=== PATIENT | male | born 1995 ===

== ENCOUNTER 2018-03-10 16:15 | Emergency (ER) | payer SELFPAY ==
[2018-03-10] MEDS ORDERED: Cephalexin CAP* 500 MG PO ONE (18:09)
--- NOTE | 2018-03-10 18:11 | ED ---
Skin Complaint - HPI Summary HPI Summary: 22 year male presents with rash on right arm for the past couple days. States that got bug bite a couple days ago. He states that the area of redness is spreading. He states it is not itchy. he has never had this before. No history of MRSA. No medical conditions. Denies any fevers or chills. No fatigue. Has tried some Benadryl with minimal relief. - History of Current Complaint Chief Complaint: EDRashSkinAbscess Time Seen by Provider: 03/10/18 18:08 Stated Complaint: RASH/SKIN ISSUE Pain Intensity: 0 - Allergy/Home Medications Allergies/Adverse Reactions: Allergies Allergy/AdvReac Type Severity Reaction Status Date / Time No Known Allergies Allergy Verified 03/10/18 16:55 PMH/Surg Hx/FS Hx/Imm Hx Endocrine/Hematology History: Denies: Hx Anticoagulant Therapy Cardiovascular History: Denies: Hx Hypertension Infectious Disease History: No Infectious Disease History: Denies: Traveled Outside the [place] in Last 30 Days - Family History Known Family History: Negative: Diabetes - Social History Alcohol Use: Occasionally Substance Use Type: Reports: None Smoking Status (MU): Never Smoked Tobacco Review of Systems Negative: Fever Negative: Chest Pain Negative: Shortness Of Breath Positive: Rash All Other Systems Reviewed And Are Negative: Yes Physical Exam Triage Information Reviewed: Yes Vital Signs On Initial Exam: Initial Vitals Temp Pulse Resp BP Pulse Ox 100.1 F 70 16 133/82 98 03/10/18 16:52 03/10/18 16:52 03/10/18 16:52 03/10/18 16:52 03/10/18 16:52 Vital Signs Reviewed: Yes Appearance: Positive: Well-Appearing Skin: Positive: Other - 8cm by 6cm area of erythema on right arm Head/Face: Positive: Normal Head/Face Inspection Eyes: Positive: Normal, Conjunctiva Clear ENT: Positive: Pharynx normal Respiratory/Lung Sounds: Positive: Clear to Auscultation, Breath Sounds Present Cardiovascular: Positive: Normal, RRR Musculoskeletal: Positive: Normal Neurological: Positive: Normal Psychiatric: Positive: Normal Diagnostics - Vital Signs Vital Signs Temp Pulse Resp BP Pulse Ox 03/10/18 16:52 100.1 F 70 16 133/82 98 - Laboratory Lab Statement: Any lab studies that have been ordered have been reviewed, and results considered in the medical decision making process. Course/Dx - Course Course Of Treatment: 22 year male presents with rash on right arm for the past couple days. States that got bug bite a couple days ago. He states that the area of redness is spreading. He states it is not itchy. he has never had this before. No history of MRSA. No medical conditions. Denies any fevers or chills. No fatigue. Has tried some Benadryl with minimal relief. On exam has 8 cm x 6 cm area of erythema on right arm. Warm to touch. Will treat for cellulitis with Keflex. Patient understands and agrees with plan. - Differential Diagnoses - Skin Complaint Differential Diagnoses: Abscess, Cellulitis, Contact Dermatitis - Diagnoses Provider Diagnoses: Right arm cellulitis Discharge - Sign-Out/Discharge Documenting (check all that apply): Patient Departure - Discharge Plan Condition: Good Disposition: HOME Prescriptions: Cephalexin CAP* [Keflex CAP*] 500 mg PO TID #29 cap Patient Education Materials: Cellulitis (ED) Referrals: [facility] [Outside] Additional Instructions: Take Keflex three times a day for 10 days establish care with primary Return to ED if develop fever, area of redness spreads, or any new or worsening symptoms - Billing Disposition and Condition Condition: GOOD Disposition: Home
[2018-03-10 18:41] VITALS: BP 135/66
== END 2018-03-10 18:38 | disposition home or self-care (01) ==
LOC: ED 16:15
DX: L03.113 Cellulitis of right upper limb (principal)
CPT/HCPCS: 99281; A9270-GY